=== PATIENT | female | born 1995 | race Caucasian/White ===

== ENCOUNTER 2016-09-21 16:09 | Emergency (ER) | payer OTHER ==
[2016-09-21 16:19] VITALS: TEMP 98.4; O2SAT 96
--- NOTE | 2016-09-21 16:58 | EDPHY ---
HPI/HX/ROS/PE/MDM Narrative: CHIEF COMPLAINT: Right hip pain HPI: This patient is a normally healthy 21-year-old female who presents to the Emergency Department complaining of atraumatic right hip pain beginning while hiking yesterday and waxing and waning over time. She reports chronic right hip pain over the past three months; yesterday, however, her pain was so severe that she was unable to bear any weight on her right leg last night. She describes her pain as localized to her right groin area and exacerbated with any movement. She denies any additional complaints. No fever, chills, abdominal pain, or urinary complaints. Medical history includes scoliosis, ITP, and chronic back pain. REVIEW OF SYSTEMS: Aside from elements discussed in the HPI, a comprehensive 10-point review of systems was reviewed and is negative. PMH: 1. Scoliosis 2. ITP in remission 3. Anemia 4. Chronic back pain 5. Chronic grant pain SOCIAL HISTORY: Works at [employer]. Active; hikes 2x weekly. PHYSICAL EXAM: General:Patient is alert, in no acute distress. Skin: Atraumatic. Normal color. No rash. Warm and dry. Focused exam of the right hip and lower extremity: No tenderness but significant pain with any motion of the right hip. ED Course: 21-year-old female with history of scoliosis and ITP in remission presents with complaint of atraumatic, waxing and waning right hip pain beginning while hiking yesterday. This appears to be an acute exacerbation of chronic right hip pain but is so severe that she has significant pain with even minimal motion of her right lower extremity. Her hip is nontender. Will proceed with x-ray of the right hip and labs. IV established. 30mg IV Toradol administered. X-ray of the hip was read by Dr. Das, radiology, who recommends MRI for further evaluation. 1855: MRI results reported to me by Dr. Das, radiology. I discussed imaging findings with the patient. She will be given follow-up referral to orthopedics and at home care instructions to alternate Ibuprofen and Tylenol as needed for pain. She will be given hydrocodone to use PRN for severe pain. She understands customary return precautions and will be discharged home in good condition. - Data Points Imaging Results: Imaging Impressions Hip X-Ray 09/21/16 17:14 Impression:1. Pubic symphysitis. Might the patient's pain be referred? 2. Congenitally short acetabula. This anatomy would predispose the patient to premature acetabular labral degeneration. If symptoms persist consider 3T hip MRI. Lower Extremity MRI 09/21/16 17:53 Impression: Right iliopsoas muscle strain. Results discussed with Dr. Heaton at 6:55 am. Imaging: Discussed imaging studies w/ call out operator Radiologist Laboratory Results: Laboratory Results 09/21/16 17:57 09/21/16 17:57 09/21/16 09/21/16 09/21/16 17:57 17:57 17:57 WBC 9.11 10^3/uL 10^3/uL (3.80-9.50) RBC 4.30 10^6/uL 10^6/uL (4.18-5.33) Hgb 13.1 g/dL g/dL (12.6-16.3) Hct 40.2 % % (38.0-47.0) MCV 93.5 fL fL (81.5-99.8) MCH 30.5 pg pg (27.9-34.1) MCHC 32.6 g/dL g/dL (32.4-36.7) RDW 14.4 % % (11.5-15.2) Plt Count 273 10^3/uL 10^3/uL (150-400) MPV 10.1 fL fL (8.7-11.7) Neut % (Auto) 50.0 % % (39.3-74.2) Lymph % (Auto) 42.0 % % (15.0-45.0) [place] % (Auto) 6.6 % % (4.5-13.0) Eos % (Auto) 0.8 % % (0.6-7.6) Baso % (Auto) 0.3 % % (0.3-1.7) Nucleat RBC Rel Count 0.0 % % (0.0-0.2) Absolute Neuts (auto) 4.55 10^3/uL 10^3/uL (1.70-6.50) Absolute Lymphs (auto) 3.83 10^3/uL H 10^3/uL (1.00-3.00) Absolute Monos (auto) 0.60 10^3/uL 10^3/uL (0.30-0.80) Absolute Eos (auto) 0.07 10^3/uL 10^3/uL (0.03-0.40) Absolute Basos (auto) 0.03 10^3/uL 10^3/uL (0.02-0.10) Absolute Nucleated RBC 0.00 10^3/uL 10^3/uL (0-0.01) Immature Gran % 0.3 % % (0.0-1.1) Immature Gran # 0.03 10^3/uL 10^3/uL (0.00-0.10) Sodium 133 mEq/L L mEq/L (134-144) Potassium 3.9 mEq/L mEq/L (3.5-5.2) Chloride 105 mEq/L mEq/L (97-110) Carbon Dioxide 19 mEq/l L mEq/l (22-31) Anion Gap 9 mEq/L mEq/L (8-16) BUN 14 mg/dL mg/dL (7-23) Creatinine 0.7 mg/dL mg/dL (0.6-1.0) Estimated GFR > 60 Glucose 73 mg/dL mg/dL (70-100) Calcium 8.9 mg/dL mg/dL (8.5-10.4) Beta HCG, Qual NEGATIVE Medications Given: Discontinued Medications Ketorolac Tromethamine (Toradol) 30 mg IVP EDNOW ONE Stop: 09/21/16 17:26 Last Admin: 09/21/16 17:55 Dose: 30 mg General Time Seen by Provider: 09/21/16 16:57 Initial Vital Signs: Initial Vital Signs Temperature (C) 36.9 C 09/21/16 16:18 Heart Rate 82 09/21/16 16:18 Respiratory Rate 14 09/21/16 16:18 Blood Pressure 123/85 H 09/21/16 16:18 O2 Sat (%) 96 09/21/16 16:18 O2 Delivery Mode Room Air Allergies/Adverse Reactions: aripiprazole [From Abilify] Allergy (Verified 02/02/15 09:17) Sulfa (Sulfonamide Antibiotics) Allergy (Verified 02/02/15 09:17) Home Medications: Medication Instructions Recorded ALPRAZolam [Xanax 0.5 MG (*)] 0.5 mg PO DAILY PRN 01/30/15 Acetaminophen [Tylenol ES 500 mg 500 mg PO Q8 PRN 01/30/15 (*)] Dextroamphetamine/Amphetamine 5 mg PO DAILY PRN 01/30/15 [Adderall 5 mg Tablet] Propranolol HCl [Inderal 40mg (*)] 40 mg PO BID PRN 01/30/15 traZODone [traZODONE 50MG (*)] 50 - 150 mg PO HS PRN 01/30/15 Pantoprazole Sodium [Protonix 40mg 40 mg PO DAILY #30 tab 01/31/15 (*)] oxyCODONE/APAP 5/325 [Percocet 1 - 2 tab PO Q4 PRN #30 tab 02/03/15 5/325 (*)] Hydrocodone/APAP 5/325 [Groom 1 - 2 tab PO Q4 #13 tab 05/07/15 5/325 (RX)] Hydrocodone/APAP 5/325 [Groom 1 - 2 tab PO Q4H PRN #7 tab 09/21/16 5/325 (RX)] Departure - Departure Disposition: Home, Routine, Self-Care Clinical Impression: Strain of muscle of right hip Qualifiers: Encounter type: initial encounter Qualified Code(s): S76.011A - Strain of muscle, fascia and tendon of right hip, initial encounter Condition: Good Instructions: Muscle Strain (ED) Additional Instructions: 1. Alternate 650mg Tylenol and 600mg Ibuprofen every 6 hours as needed for pain. Take Vicodin as prescribed as needed for severe pain. 2. Follow-up with an orthopedist for further evaluation if your symptoms do not improve in 4-6 days. 3. Return to the Emergency Department with severe pain or other worsening of condition. Referrals: Riley Flores MD [Medical Doctor] - As per Instructions Prescriptions: Hydrocodone/APAP 5/325 [Groom 5/325 (RX)] 1 - 2 tab PO Q4H PRN #7 tab PRN Reason: Pain, Moderate Report Scribed for: Mehrdad Heaton Report Scribed by: Lizzy Webster Date of Report: 09/21/16 Time of Report: 16:58 Physician Review and Approval Statement: Portions of this note were transcribed by an ED scribe. I personally performed the history, physical exam, and medical decision making; and confirm the accuracy of the information in the transcribed note.
[2016-09-21] MEDS ORDERED: KETOROLAC 30 MG/1 ML SDV IVP ONE (17:25)
[2016-09-21 18:02] LABS: % IMMATURE GRANULYOCYTES 0.3 % (0.0-1.1); ABSOLUTE IMMATURE GRANULOCYTES 0.03 10^3/uL (0.00-0.10); ADD DIFF? NO; ADD MORPH? NO; ADD SCAN? NO; ATYPICAL LYMPHOCYTE FLAG 0 (0-99); FRAGMENT RBC FLAG 0 (0-99); HEMATOCRIT 40.2 % (38.0-47.0); HEMOGLOBIN 13.1 g/dL (12.6-16.3); LEFT SHIFT FLG 0 (0-99); LIPEMIA HEMOLYSIS FLAG 80 (0-99); MEAN CELL HEMOGLOBIN 30.5 pg (27.9-34.1); MEAN CELL HEMOGLOBIN CONCENTR. 32.6 g/dL (32.4-36.7); MEAN CELL VOLUME 93.5 fL (81.5-99.8); MEAN PLATELET VOLUME 10.1 fL (8.7-11.7); PLATELET CLUMPS FLAG 0 (0-99); PLATELET COUNT 273 10^3/uL (150-400); RED CELL DISTRIBUTION WIDTH 14.4 % (11.5-15.2)
[2016-09-21 18:33] LABS: ANION GAP 9 mEq/L (8-16); CALCIUM 8.9 mg/dL (8.5-10.4); CARBON DIOXIDE 19 mEq/l (22-31); CHLORIDE 105 mEq/L (97-110); CREATININE 0.7 mg/dL (0.6-1.0); GLOMERULAR FILTRATION RATE > 60; GLUCOSE 73 mg/dL (70-100); POTASSIUM 3.9 mEq/L (3.5-5.2); SODIUM 133 mEq/L (134-144)
[2016-09-21] MEDS ORDERED: HYDROCOD/APAP 5/325 PREPACK#6 BTL TAKEHOME ONE (19:22)
[2016-09-21 19:57] VITALS: BP 128/77; PULSE 68; RESP 18
== END 2016-09-21 19:56 | disposition home or self-care (01) ==
DX: S76.011A Strain of muscle, fascia and tendon of right hip, initial encounter (principal); X58.XXXA Exposure to other specified factors, initial encounter; Y99.8 Other external cause status; Y93.01 Activity, walking, marching and hiking
CPT/HCPCS: 96374; J1885